=== PATIENT | male | born 1995 | race Caucasian/White ===

== ENCOUNTER 2016-06-04 09:26 | Emergency (ER) ==
[2016-06-04 09:31] VITALS: BP 147/83
--- NOTE | 2016-06-04 09:44 | PROVIDER DOCUMENTATION ---
[facility]-EENT General - General Chief Complaint: Neck Pain Stated Complaint: KNOT ON THYROID Time Seen by Provider: 06/04/16 09:32 Source: patient Allergies/Adverse Reactions: Patient Allergies Allergy/AdvReac Type Severity Reaction Status Date / Time No Known Allergies Allergy Verified 10/03/14 14:09 Home Medications: Home Medication List Medication Instructions Recorded Confirmed Last Taken Type Ciprofloxacin 0.3% Ophth Soln 1 drop RIGHT EYE TID #1 bottle 10/03/14 Unknown Rx [Ciloxan Ophth Soln] - History of Present Illness-EENT General Nature of Presenting Problem: patient is a 20 y/o M that presents to the Er with right sided swollen node to neck x 2 days. reports having a mild cough over that time but no fever, sore throat, or n/v/d. No history of Cancer EENT Location: reports: throat Quality of Pain: reports: dull Severity: reports: mild Onset/Duration: reports: gradual, 2 days ago Timing: reports: still present, constant Prearrival Treatment: Initiated no prearrival treatment Associated Symptoms: reports: cough. denies: ear drainage, facial pain/swelling , fever, malaise, nasal congestion/drainage, poor solids intake, sore throat, tooth pain Locality of Occurance: Home Similar Symptoms Previously?: No Recently seen or treated by another doctor?: No - Throat/Dental Throat/Dental Problem Symptoms: denies: trouble breathing, throat swelling Review of Systems - Adult - REVIEW OF SYSTEMS - ADULT Constitutional: denies: chills, fever, fatique, weight gain, weight loss Eyes: reports: no symptoms reported Ears, Nose, Mouth & Throat: denies: ear pain, sinus problem, hoarseness, throat pain, throat swelling Cardiovascular: reports: no symptoms reported Respiratory: reports: cough. denies: shortness of breath, wheezing Gastrointestinal: denies: abdominal pain, diarrhea, nausea, vomiting Genitourinary: reports: no symptoms reported Musculoskeletal: reports: no symptoms reported Integumentary: denies: itching, rash Neurological: reports: no symptoms reported Psychiatric: reports: no symptoms reported Endocrine: reports: no symptoms reported Hematologic/Lymphatic: reports: swollen lymph nodes. denies: low blood count, lymphedema Allergic/Immunologic: reports: no symptoms reported All Other Systems: Reviewed and Negative Past History - Adult - PAST MEDICAL HISTORY-ADULT Review of Records: reports: Old Records Reviewed, Nursing Assessment Review, Medications Reviewed - PRIOR SURGERIES/PROCEDURES Surgical/Procedure History: reports: reviewed, not pertinent - IMMUNIZATION STATUS Childhood Immunizations: See Nurse Assessment Flu Vaccine: See Nurse Assessment - FAMILY HISTORY Family History: reviewed, not pertinent - SOCIAL HISTORY Smoking: cigarettes, less than 1 pack/day Physical Exam- EENT - Physical Exam EENT Initial Vital Signs Reviewed: Yes General Appearance: alert, no apparent distress Eye Exam: bilateral eye: normal inspection, PERRL Ear Exam: bilateral ear: canal normal, TM normal Nasal Exam: normal inspection. negative: foreign body, sinus tenderness Throat Exam: pharynx normal. negative: pharynx swelling, tongue swollen, tonsillar exudate Neck: full range of motion, lymphadenopathy (small right sided easily movable) Respiratory: lungs clear, normal breath sounds, no respiratory distress, no accessory muscle use Cardiovascular: regular rate, rhythm, no murmur Abdominal Exam: normal bowel sounds, non tender, soft Extremity: normal range of motion, normal inspection Integumentary: normal color, warm/dry Neurologic: grossly normal, no motor/sensory deficits Psych/Mental Status: normal mood/affect, normal thought content, normal thought process, oriented x 3 Progress - PLAN OF CARE/RESULTS Progress/Plan/Lab Results: Vital Signs Temp Pulse Resp BP Pulse Ox 06/04/16 09:29 98.2 F 82 18 147/83 100 No Known Allergies Allergy (Verified 10/03/14 14:09) Ciprofloxacin 0.3% Ophth Soln [Ciloxan Ophth Soln] 1 drop RIGHT EYE TID #1 bottle 10/03/14 Azithromycin [Zithromax Z-Palmer] 250 mg PO DIRECTED #1 pkg 06/04/16 pt will be d/c home f/u with pcp, pt was clinically stable Departure - Departure Time of Disposition Order: 09:43 DIAGNOSIS: Swollen lymph nodes Disposition: HOME 01 Certified Medical Emergency: Emergent Condition: Stable Additional Instructions: ED Follow Up Instructions: You have been treated by a care provider in the Emergency Department. These instructions are being provided to you so you can have an understanding of how to care for yourself upon discharge. Upon discharge from the Emergency Department, you are responsible for making arrangements for follow-up care by a physician of your choice. Take all prescribed medications as directed. Return to the Emergency Department immediately for any new or worsening symptoms. You may call the Physician Referral phone number at [phone] to obtain a list of Physicians who are taking new patients. Referrals: None,PCP [Primary Care Provider] - Janel Espinoza MD [STAFF PHYSICIAN] - Call for Appoint. 1-2days Instructions: Lymphadenopathy
== END 2016-06-04 09:55 | disposition home or self-care (01) ==
LOC: P.ED 09:26
DX: R59.0 Localized enlarged lymph nodes (principal); M54.2 Cervicalgia; R05 Cough; F17.210 Nicotine dependence, cigarettes, uncomplicated